=== PATIENT | male | born 1990 | race African-American/Black ===

== ENCOUNTER 2019-05-05 17:44 | Emergency (ER) | payer MEDICAID ==
[~2019-05-05] VITALS: Ht 188 cm; Wt 106.6 kg
--- NOTE | 2019-05-05 18:30 | NUR ---
HARINI HADLEY AT BEDSIDE FOR MSE.
[2019-05-05 18:31] LABS: BASOPHILS % (AUTO) 0.6 % (0.0-2.0); EOSINOPHILS # (AUTO) 0.1 K/uL (0.0-0.7); EOSINOPHILS % (AUTO) 1.7 % (0.0-7.0); HEMATOCRIT 45.9 % (36.7-47.1); HEMOGLOBIN 15.6 g/dL (12.5-16.3); LYMPHOCYTES # (AUTO) 1.1 K/uL (20.0-40.0); LYMPHOCYTES % (AUTO) 18.3 % (20.5-51.5); MEAN CORPUSCULAR HEMOGLOBIN 31.1 uug (23.8-33.4); MEAN CORPUSCULAR HGB CONC 34 g/dL (32.5-36.3); MEAN CORPUSCULAR VOLUME 91.2 fL (73.0-96.2); MONOCYTES # (AUTO) 0.8 K/uL (2.0-10.0); MONOCYTES % (AUTO) 13.8 % (0.0-11.0); NEUTROPHILS # (AUTO) 3.8 K/uL (1.8-8.9); NEUTROPHILS % (AUTO) 65.6 % (38.5-71.5); PLATELET COUNT (AUTO) 252 K/uL (152-348); RED BLOOD CELL COUNT(AUTO) 5.03 MIL/uL (4.06-5.63); WHITE BLOOD COUNT (AUTO) 5.8 K/uL (3.6-10.2)
--- NOTE | 2019-05-05 18:56 | NUR ---
SHIFT REPORT GIVEN TO ERIC Kurtz RN.
--- NOTE | 2019-05-05 19:00 | NUR ---
Assumed care of patient. no acute distress noted.
[2019-05-05] MEDS ORDERED: VALACYCLOVIR HCL 500 MG TABLET PO ONE (19:30)
[2019-05-05] MEDS ORDERED: VALACYCLOVIR HCL 500 MG TABLET ONE (19:32)
[2019-05-05] MEDS ORDERED: ONDANSETRON ODT 4 MG TAB.RAPDIS SL ONE (19:45)
[2019-05-05] MEDS ORDERED: AZITHROMYCIN 250 MG TABLET PO ONE (19:45)
[2019-05-05] MEDS ORDERED: CEFTRIAXONE 1 G VIAL IM ONE (19:45)
[2019-05-05] MEDS ORDERED: CEFTRIAXONE 1 G VIAL ONE (19:46)
[2019-05-05] MEDS ORDERED: LIDOCAINE HCL 2% 20 ML VIAL ONE (19:46)
[2019-05-05] MEDS ORDERED: ONDANSETRON ODT 4 MG TAB.RAPDIS ONE (19:46)
[2019-05-05] MEDS ORDERED: AZITHROMYCIN 250 MG TABLET ONE (19:46)
--- NOTE | 2019-05-05 20:03 | NUR ---
Patient discharged to home in stable conditon. Written and verbal after care instructions given. Patient verbalizes understanding of instructions. Ambulated from ER with stable gait. All belongings with patient. VSS
[2019-05-05 20:04] VITALS: BP 121/74
== END 2019-05-05 20:04 | disposition home or self-care (01) ==
LOC: ER 17:52
DX: A60.01 Herpesviral infection of penis (principal); R59.0 Localized enlarged lymph nodes; J45.909 Unspecified asthma, uncomplicated
CPT/HCPCS: 36415; 85025; 87491; 93970; 96372; 99284; J0696; J3490; A4663; Q0144; Q0162